=== PATIENT | female | born 1995 | race Caucasian/White ===

== ENCOUNTER 2023-03-29 03:08 | Inpatient (IN) ==
[2023-03-29] MEDS ORDERED: Lidocaine 1% VIAL 10 MG/ML 30 ML VIAL INJ PRN (04:15)
[2023-03-29] MEDS ORDERED: Calcium Carb (TUMS) 500 mg CHEW TAB PO PRN (04:23)
[2023-03-29 05:35] LABS: Urine Benzodiazepine Screen None Detected (None Detect); Urine Cannabinoids Screen None Detected (None Detect); Urine Opiates Screen None Detected (None Detect)
[2023-03-29 05:37] LABS: ABS Eosinophils 0.1 10^3/uL (0.0-0.5); ABS Lymphocytes 1.6 10^3/uL (1.0-4.8); ABS Monocytes 0.7 10^3/uL (0.0-0.9); ABS Neutrophils 7.1 10^3/uL (1.5-7.6); ABS Nucleated RBC 0.01 10^3/ul; Eosinophil % 0.6 %; Hematocrit 36.3 % (35-45); Hemoglobin 12.1 g/dL (11.5-14.3); Lymphocyte % 16.9 %; Mean Corpuscular Hemoglobin 26.6 pg (27-33); Mean Corpuscular Hgb Conc 33.3 g/dL (31-36); Mean Platelet Volume 7.9 fL (7.5-11.2); Nucleated Red Blood Cells % 0.1 %/100WBC (0.0-0.8); Platelet Count 306 10^3/uL (150-450); Red Blood Count 4.55 10^6/uL (3.63-4.92); Red Cell Distribution Width 15.6 % (12-17); White Blood Count 9.4 10^3/uL (3.8-11.8)
[2023-03-29] MEDS: miSOPROStol 100 mcg TAB PO ONE (05:52)
[2023-03-29 05:54] LABS: Albumin 3.5 g/dL (3.2-5.2); Albumin/Globulin Ratio 1.1 (1-3); Creatinine, Serum 0.61 mg/dL (0.51-0.95); Globulin 3.2 g/dL (2-4); Potassium 4.1 mmol/L (3.5-5.0); Total Bilirubin 0.3 mg/dL (0.2-1.0); Total Protein 6.7 g/dL (6.4-8.9); eGFR CKD-EPI 124.8 (>60)
[2023-03-29] MEDS: Lactated Ringers 1000 ml BAG 1,000 ML IV ONE (16:13)
[2023-03-29] MEDS: Buffered Lidocaine 1% SYRIN 1 ml INTRADERM ONE (16:13)
[2023-03-29] MEDS: Prochlorperazine 5 mg/ml 2 ml VIAL (10 mg) IV PRN (17:34)
[2023-03-29] MEDS: Lactated Ringers 1000 ml BAG 1,000 ML IV SCH (18:26)
[2023-03-29] MEDS: Oxytocin in LR 20,000 MILLI.UNIT/1,000 ML BAG IV SCH (19:46)
[2023-03-29] MEDS: OBEPIDURAL (200 ML) 200 ML EPIDURAL ONE (23:10)
[2023-03-29] MEDS ORDERED: Phenylephrine 40 mcg/mL 10mL (400mcg) SYRINGE IV PUSH PRN ×2 (23:20)
[2023-03-29] MEDS ORDERED: Sodium Citrate/Citric Acid LIQ 15 ML UDC PO PRN (23:20)
[2023-03-30 00:29] LABS: Urine Appearance Clear; Urine Bilirubin Negative (Negative); Urine Blood Negative (Negative); Urine Color Light-Yellow; Urine Glucose Negative (Negative); Urine Ketones 2+ (Negative); Urine Nitrite Negative (Negative); Urine Protein 1+ (>=30 mg/dL) (Negative); Urine Urobilinogen Negative (Negative); Urine pH 6.5 (5.0-8.0)
[2023-03-30 00:38] LABS: Urine Bacteria Absent /HPF (Absent); Urine Red Blood Cell 1+(3-5/hpf) /HPF (0-Trace); Urine White Blood Cell Trace(0-5/hpf) /HPF (0-Trace)
[2023-03-30] MEDS: Acetaminophen IV 1 GM/100ML 1,000 MG/100 ML BAG IV ONE (03:34)
[2023-03-30] MEDS: Ampicillin ADVAN 2 GM in NS 0.9% 100 ml BAG 100 ML IVPB SCH (03:59)
[2023-03-30] MEDS: Gentamicin ADULT 450 MG in NS 0.9% 100 ml BAG 100 ML IVPB SCH (04:45)
[2023-03-30] MEDS: Ondansetron 4 mg VIAL 2 MG/ML 2 ml VIAL IV PRN (07:05)
[2023-03-30] MEDS ORDERED: Varicella Virus Vaccine Live 0.5 ML VIAL SUBCUT ONE (07:57)
[2023-03-30] MEDS ORDERED: Lactated Ringers 1000 ml BAG 1,000 ML IV SCH (08:00)
[2023-03-30] MEDS: Witch Hazel PAD JAR TOPICAL PRN (09:17)
[2023-03-30] MEDS: Dibucaine 1% OINT 28.35 GM TUBE PR PRN (09:17)
[2023-03-30] MEDS: Lidocaine 1.5% EPI 1:200,000 30 ML SDV ONE ×2 (17:16→17:17)
[2023-03-30] MEDS: Lactated Ringers 1000 ml BAG 1,000 ML IV ONE (17:16)
[2023-03-30] MEDS: Lactated Ringers 1000 ml BAG 1,000 ML IV SCH (17:16)
[2023-03-30] MEDS: Lidocaine 2% JELLY 6 ML Topical TOPICAL ONE (17:16)
[2023-03-30] MEDS: Oxytocin in LR 20,000 MILLI.UNIT/1,000 ML BAG IV SCH (17:17)
[2023-03-30] MEDS: OBEPIDURAL (200 ML) 200 ML EPIDURAL SCH (17:23)
[2023-03-30] MEDS: Enoxaparin 40 MG/0.4 ML SYR SUBCUT SCH (20:40)
[2023-03-31 07:58] LABS: ABS Eosinophils 0.1 10^3/uL (0.0-0.5); ABS Lymphocytes 2.1 10^3/uL (1.0-4.8); ABS Monocytes 0.9 10^3/uL (0.0-0.9); ABS Neutrophils 7.6 10^3/uL (1.5-7.6); ABS Nucleated RBC 0.01 10^3/ul; Eosinophil % 0.8 %; Hematocrit 31.7 % (35-45); Hemoglobin 10.5 g/dL (11.5-14.3); Lymphocyte % 19.8 %; Mean Corpuscular Hemoglobin 26.7 pg (27-33); Mean Corpuscular Hgb Conc 33.1 g/dL (31-36); Mean Corpuscular Volume 80.7 fL (80-97); Nucleated Red Blood Cells % 0.1 %/100WBC (0.0-0.8); Platelet Count 244 10^3/uL (150-450); Red Blood Count 3.93 10^6/uL (3.63-4.92); Red Cell Distribution Width 16.3 % (12-17); White Blood Count 10.8 10^3/uL (3.8-11.8)
[2023-03-31 08:54] VITALS: BP 143/76
[2023-03-31] MEDS: Varicella Virus Vaccine Live 0.5 ML VIAL SUBCUT ONE (17:45)
[2023-03-31] MEDS: Enoxaparin 40 MG/0.4 ML SYR SUBCUT ONE (17:49)
== END 2023-03-31 18:00 | disposition home or self-care (01) | DRG 560 ==
LOC: MCHOBOUT 03:08 → MCHOB 04:01
PROVIDERS: ADMIT Advanced Practice Midwife; ATTEND Advanced Practice Midwife